=== PATIENT | female | born 1970 | race Caucasian/White ===

== ENCOUNTER 2022-08-28 20:40 | Emergency (ER) | payer OTHER ==
[~2022-08-28] VITALS: Ht 160 cm; Wt 99.0 kg
[2022-08-28] MEDS ORDERED: ATEN-73 PO (21:14)
[2022-08-28] MEDS ORDERED: STATIN PO (21:14)
[2022-08-28] MEDS ORDERED: FLUO10CA24 PO (21:14)
[2022-08-28] MEDS ORDERED: BUPR-344 PO (21:14)
[2022-08-28] MEDS ORDERED: HYDROCODONE/ACETAMINOPHEN 5-325 MG TABLET PO ONE (22:30)
[2022-08-28] MEDS ORDERED: CYCL-448 PO (23:53)
[2022-08-28 23:56] VITALS: BP 132/75
== END 2022-08-28 23:56 | disposition home or self-care (01) ==
LOC: EMS 20:42
DX: S30.0XXA Contusion of lower back and pelvis, initial encounter (principal); M25.562 Pain in left knee; I11.9 Hypertensive heart disease without heart failure; E78.00 Pure hypercholesterolemia, unspecified; Z98.890 Other specified postprocedural states; Z96.659 Presence of unspecified artificial knee joint; V49.9XXA Car occupant (driver) (passenger) injured in unspecified traffic accident, initial encounter; Y93.89 Activity, other specified; Y92.89 Other specified places as the place of occurrence of the external cause; Y99.8 Other external cause status
CPT/HCPCS: 72040; 72072; 99283